=== PATIENT | male | born 1955 | race Caucasian/White ===

== ENCOUNTER 2019-05-03 12:54 | Inpatient (IN) ==
--- NOTE | 2019-05-03 13:04 | Emergency Department Note ---
Disposition Clinical Impression: CVA (cerebral vascular accident) Qualifiers: CVA mechanism: unspecified Qualified Code(s): I63.9 - Cerebral infarction, unspecified Disposition: Admitted As Inpatient Condition: Fair Forms: ED Satisfaction Letter Time of Disposition: 14:23 General Adult HPI - General Stated complaint: Poss stroke Time Seen by Provider: 05/03/19 12:59 - Related Data Allergies Allergy/AdvReac Type Severity Reaction Status Date / Time methadone Allergy Difficulty Verified 05/03/19 13:56 Breathing venlafaxine Allergy Difficulty Verified 05/03/19 13:56 Breathing Course Vital Signs Temperature 98.1 F 05/03/19 13:01 Pulse Rate 82 05/03/19 13:01 Respiratory Rate 18 05/03/19 13:01 Blood Pressure 181/103 05/03/19 13:01 O2 Sat by Pulse Oximetry 99 05/03/19 13:01 Temperature 98.1 F 05/03/19 13:01 Pulse Rate 84 05/03/19 13:19 Respiratory Rate 17 05/03/19 13:19 Blood Pressure 153/114 05/03/19 13:19 O2 Sat by Pulse Oximetry 99 05/03/19 13:01 Oxygen Delivery Oxygen Delivery Room Air Medical Decision Making - Lab Data Result diagrams: 05/03/19 13:06 05/03/19 13:06 Lab Results 05/03/19 05/03/19 05/03/19 Range/Units 13:06 13:06 13:06 WBC 10.8 (4.3-11.1) K/mcL RBC 5.07 (4.19-5.50) M/mcL Hgb 14.8 (12.9-16.9) g/dL Hct 43.6 (37.5-50.1) % MCV 86.0 (83.0-100.0) fL MCH 29.2 (28.0-33.3) pg MCHC 33.9 (31.6-35.5) g/dL RDW 13.7 (11.5-14.5) % Plt Count 354 (140-400) K/mcL MPV 10.1 (9.4-12.4) fL PT 11.5 (9.4-12.1) Seconds INR 1.0 APTT 37.2 H (26.0-36.0) Seconds Sodium 141 (136-145) mEq/L Potassium 3.8 (3.5-5.1) mEq/L Chloride 108 H (98-107) mEq/L Carbon Dioxide 23 (23-29) mEq/L BUN 12 (8-23) mg/dL Creatinine 0.92 (0.70-1.30) mg/dL Est GFR ( Amer) > 60 (> 60) Est GFR (Non-Af Amer) > 60 (> 60) BUN/Creatinine Ratio 13 (6-26) Glucose 95 (70-105) mg/dL Calculated Osmolality 292 (280-300) Calcium 9.2 (8.6-10.3) mg/dL Troponin I < 0.03 (< 0.04) ng/mL Critical Care Time Critical Care Time: Yes Total Critical Care Time: 30 Attestation: The high probability of a clinically significant, sudden or life threatening deterioration of the [] system(s) required my full and direct attention, intervention and personal management. The aggregate critical care time was [] minutes. This time is in addition to time spent performing reported procedures but includes the following: [] Data Review and interpretation [] Patient assessment and monitoring of vital signs [] Documentation [] Medication orders and management Attestation Statement - Attestation Attestation: I reviewed the residents documentation and agree with the residents assessment and plan of care. I have personally had face to face time with the patient. (Brief History, Brief Exam, and MDM) I personally supervised and was present for the [place]/critical portions of the following procedures completed by the resident: (add procedures performed here). [id number] time provided Patient arrives as a transfer from the [facility] with symptoms that started 3 hours ago. He stated his tongue felt full and he has left-sided symptoms. Objectively he has a left-sided pronator drift. Stroke alert activated. I attest to supervising the resident physician's interpretation of the ECG
[2019-05-03 13:17] LABS: Hematocrit 43.6 % (37.5-50.1); Hemoglobin 14.8 g/dL (12.9-16.9); Mean Corpuscular HGB Conc 33.9 g/dL (31.6-35.5); Mean Corpuscular Hemoglobin 29.2 pg (28.0-33.3); Mean Platelet Volume 10.1 fL (9.4-12.4); Platelet Count 354 K/mcL (140-400); Red Blood Count 5.07 M/mcL (4.19-5.50); Red Cell Distribution Width 13.7 % (11.5-14.5); White Blood Count 10.8 K/mcL (4.3-11.1)
--- NOTE | 2019-05-03 13:17 | Emergency Department Note ---
Disposition Clinical Impression: CVA (cerebral vascular accident) Qualifiers: CVA mechanism: unspecified Qualified Code(s): I63.9 - Cerebral infarction, unspecified Disposition: Admitted As Inpatient Condition: Fair Forms: ED Satisfaction Letter Time of Disposition: 13:43 General Adult HPI - General Chief complaint: ED Neuro Symptoms/Deficit Stated complaint: Poss stroke Time Seen by Provider: 05/03/19 12:59 Source: patient, EMS Mode of arrival: EMS Limitations: no limitations Nursing Notes Reviewed: Yes Vital Signs Reviewed: Yes - History of Present Illness HPI Narrative: Patient is 63-year-old male that presents emergency department with concerns for possible strokelike symptoms. Patient states that approximately 9 AM he was playing pool when he started having weakness to the left upper and lower extremity. Patient also states that he felt like his tongue was swollen and full and is having a little bit more difficulty with his speech sounding slurred. Patient states that he feels like his symptoms are improving. Patient states that his tongue no longer feels like he has swollen. Patient states that his left upper extremity is the only one that seems to be bothering him at this time. Patient states that he has never had a prior history of stroke. Patient has being on any blood thinners. Patient has any recent surgeries or trauma. Patient denies any blood in his stool or in his sputum or vomit. Pain Scale: 0 - Related Data Allergies Allergy/AdvReac Type Severity Reaction Status Date / Time methadone Allergy Difficulty Verified 05/03/19 13:56 Breathing venlafaxine Allergy Difficulty Verified 05/03/19 13:56 Breathing All systems ED: reviewed and negative except as stated. Constitutional: Denies: fever Cardiovascular: Denies: chest pain Respiratory: Denies: dyspnea Gastrointestinal: Denies: abdominal pain Neurological: Reports: weakness (Left upper and lower extremity.), other (Difficulty with slurred speech.) Past Medical History - Past Medical History Medical history: Reports: no medical history Psychiatric history: Reports: no psych history - Social History Smoking Status: Current every day smoker Smokeless Tobacco Status: No Alcohol use: Reports: none Drug use: Reports: none Physical Exam - General Limitations: no limitations General appearance: alert, in no apparent distress - Head Head exam: atraumatic, normocephalic - Eye Eye exam: Present: normal appearance, EOMI - Neck Neck exam: Present: normal inspection, full ROM, trachea midline - Respiratory Respiratory exam: Present: normal lung sounds bilaterally. Absent: respiratory distress, wheezes - Cardiovascular Cardiovascular exam: Present: regular rate, normal rhythm, normal heart sounds, +S1, +S2 - Abdominal Exam Abdominal exam: Present: soft, Non-Tender, normal bowel sounds - Neurological Exam Neurological exam: Present: alert, oriented X3 - Expanded Neurological Exam Speech: Present: fluid speech Cranial nerves: EOM function (II, III, IV, ): Normal, facial sensation (V): Normal, facial palsy (VII): Normal, gag reflex (IX): Normal, spinal accessory function (XI): Normal, tongue deviation (XII): Normal Cerebellar function: finger to nose: Normal, heel to solis: Normal Motor strength - LUE: 5/5 Motor strength - RUE: 5/5 Motor strength - LLE: 5/5 Motor strength - RLE: 5/5 Upper motor neuron exam: pronator drift: Present on left Sensory exam upper extremity: light touch: Normal Sensory exam lower extremity: light touch: Normal Coma Scale Eye Opening: Spontaneous Coma Scale Motor Response: Obeys Commands Coma Scale Verbal Response: Oriented Coma Scale Total: 15 - Psychiatric Psychiatric exam: Present: normal affect, normal mood - Skin Skin exam: Present: warm, dry, intact Course Vital Signs Temperature 98.1 F 05/03/19 13:01 Pulse Rate 82 05/03/19 13:01 Respiratory Rate 18 05/03/19 13:01 Blood Pressure 181/103 05/03/19 13:01 O2 Sat by Pulse Oximetry 99 05/03/19 13:01 Temperature 98.1 F 05/03/19 13:01 Pulse Rate 84 05/03/19 13:19 Respiratory Rate 17 05/03/19 13:19 Blood Pressure 153/114 05/03/19 13:19 O2 Sat by Pulse Oximetry 99 05/03/19 13:01 Oxygen Delivery Oxygen Delivery Room Air Medical Decision Making - MDM Narrative Medical decision making narrative: Due the patient's into the emergency department with reports of neurologic symptoms concerning for possible stroke a stroke alert was called. Patient has an NIH of 2. Patient was evaluated by the stroke neurologist at [facility]. Stated that he was not a TPA candidate. Recommend that he be admitted for MRI and further neurologic workup. Patient and family member at bedside are in agreement with this plan. Patient's EKG does not show any signs of STEMI. Head CT was negative. Laboratory testing is relatively unremarkable. Patient's symptoms have been slowly improving. Patient will be given an aspirin. Called spoke the admitting hospitalist Dr. Escobar and he has accepted the patient to [facility] service. - Medical Records Medical records reviewed: Yes I reviewed the patient's medical records. - Lab Data Lab results reviewed: Yes I reviewed the patient's lab results. Result diagrams: 05/03/19 13:06 05/03/19 13:06 Lab Results 05/03/19 05/03/19 05/03/19 Range/Units 13:06 13:06 13:06 WBC 10.8 (4.3-11.1) K/mcL RBC 5.07 (4.19-5.50) M/mcL Hgb 14.8 (12.9-16.9) g/dL Hct 43.6 (37.5-50.1) % MCV 86.0 (83.0-100.0) fL MCH 29.2 (28.0-33.3) pg MCHC 33.9 (31.6-35.5) g/dL RDW 13.7 (11.5-14.5) % Plt Count 354 (140-400) K/mcL MPV 10.1 (9.4-12.4) fL PT 11.5 (9.4-12.1) Seconds INR 1.0 APTT 37.2 H (26.0-36.0) Seconds Sodium 141 (136-145) mEq/L Potassium 3.8 (3.5-5.1) mEq/L Chloride 108 H (98-107) mEq/L Carbon Dioxide 23 (23-29) mEq/L BUN 12 (8-23) mg/dL Creatinine 0.92 (0.70-1.30) mg/dL Est GFR ( Amer) > 60 (> 60) Est GFR (Non-Af Amer) > 60 (> 60) BUN/Creatinine Ratio 13 (6-26) Glucose 95 (70-105) mg/dL Calculated Osmolality 292 (280-300) Calcium 9.2 (8.6-10.3) mg/dL Troponin I < 0.03 (< 0.04) ng/mL - Radiology Data Radiology results reviewed: Yes I reviewed the patient's radiology results. Head CT 05/03/19 13:02 IMPRESSION: 1. No acute intracranial abnormality. Critical results were called by Dr. Jonathan Sumner MD to Dr. Dequan BAEZ on 05/03/2019 at 13:21. D/ / Jonathan Sumner MD / Jonathan Sumner MD Interpreting Provider: Jonathan Sumner MD - EKG Data EKG #1 EKG attestation: Yes I reviewed and interpreted this EKG. EKG results narrative: EKG shows a sinus rhythm at a rate of 85 beats per minute, [place] interval 164, QRS duration is 86, QTc of 423. There is no evidence of STEMI and EKG. NIH Stroke Scale - Level of Consciousness LOC: Alert - LOC Questions LOC Questions: Answers both correctly - LOC Commands LOC Commands: Performs both correctly - Best Gaze Best Gaze: Normal - Visual Visual: No visual loss - Facial Palsy Facial Palsy: Normal - Motor Arms Motor Arm-Left: Drift, does NOT hit bed Motor Arm-Right: No drift for 10 seconds - Motor Legs Motor Leg-Left: Drift, does NOT hit bed Motor Leg-Right: No drift for 5 seconds - Limb Ataxia Limb Ataxia: Normal, No Ataxia - Sensory Sensory: Normal - Best Language Best Language: No aphasia - Dysarthria Dysarthria: Normal - Extinction and Inattention Extinction and Inattention: Normal - NIHSS Total Score NIHSS Total Score: 2
[2019-05-03 13:23] LABS: Prothrombin Time 11.5 Seconds (9.4-12.1)
[2019-05-03 13:25] LABS: Activated Partial Thrombo Time 37.2 Seconds (26.0-36.0)
[2019-05-03 13:33] LABS: BUN/Creatinine Ratio 13 (6-26); Blood Urea Nitrogen 12 mg/dL (8-23); Calcium 9.2 mg/dL (8.6-10.3); Carbon Dioxide 23 mEq/L (23-29); Chloride 108 mEq/L (98-107); Glucose 95 mg/dL (70-105); Osmolality,Calculated 292 (280-300); Potassium 3.8 mEq/L (3.5-5.1); Sodium 141 mEq/L (136-145); Troponin I < 0.03 ng/mL (< 0.04); eGFR For African Americans > 60 (> 60); eGFR For Non-African Americans > 60 (> 60)
[2019-05-03] MEDS ORDERED: Aspirin 81 MG TAB.CHEW PO STA (13:43)
[2019-05-03] MEDS ORDERED: Naloxone 0.4 MG/ML INJ IVP PRN (15:09)
--- NOTE | 2019-05-03 15:16 | Internal Med History&Physical ---
Date of Encounter: 05/03/19 Time of Encounter: 15:14 Internal Medicine - H&P: HPI Chief complaint: Left-sided weakness Admitted From: Home History of present illness: Mr. Montero is a 63 year old male with a past medical history of hypertension, c hronic low back pain and seizure disorder Past Med Surg Social Fam HX - Past Medical History Source: patient Medical history: hypertension Psychiatric history: no psych history - Social History Smoking Status: Current every day smoker Smokeless Tobacco Status: No Alcohol use: none Drug use: none - Family History Brother Adopted: No Race: Family Member Ethnicity: Non- Living Status: Cause of : Myocardial infarction Hx Family Cardiac Disorders: Yes ([place]) Internal Medicine - H&P: Meds Amlodipine Besylate 10 mg PO DAILY 05/03/19 [History] Cyclobenzaprine [Flexeril] 10 mg PO BID PRN 05/03/19 [History] Diclofenac Sodium [Voltaren] 50 mg PO TID 05/03/19 [History] Fluticasone Propionate Nasal [Flonase] 100 mcg NS DAILY 05/03/19 [History] OLANZapine [Zyprexa] 5 mg PO DAILY 05/03/19 [History] Omeprazole [PriLOSEC] 20 mg PO DAILY 05/03/19 [History] Ondansetron [Zofran ODT] 8 mg SL BID PRN 05/03/19 [History] Trazodone HCl 100 mg PO HS 05/03/19 [History] diazePAM [Valium] 5 mg PO BID 05/03/19 [History] hydroCHLOROthiazide [Hydrochlorothiazide] 12.5 mg PO DAILY 05/03/19 [History] Allergy/AdvReac Type Severity Reaction Status Date / Time methadone Allergy Difficulty Verified 05/03/19 13:56 Breathing venlafaxine Allergy Difficulty Verified 05/03/19 13:56 Breathing All Systems PM: A 10-system review of systems was performed and is negative for pertinent findings except as documented above in the HPI. Review of systems: GENERAL: Not in distress. Alert and Oriented HEENT: EOMI, PERRLA MOUTH: Moist oral mucosa NECK:No JVD, No lymph nodes. CHEST AND LUNGS: Normal breath sounds, no wheezes or crackles HEART: S1 and S2 normal, no murmurs ABDOMEN: Soft, nontender, no organomegaly SKIN: Normal color, no rahses, no lesions EXTREMITIES: No deformity, no edema, no tenderness, no joint swelling or clubbing NEUROLOGICAL: Normal cognition, normal motor and sensory exam. - Constitutional Vitals: Temp Pulse Resp BP Pulse Ox 36.7 C 84 17 153/114 99 05/03/19 13:01 05/03/19 13:19 05/03/19 13:19 05/03/19 13:19 05/03/19 13:01 Exam: Patient is a 63-year-old male with past medical history of hypertension, seizure disorder (last seizure many years ago) and chronic low back pain who presented with sudden onset left-sided weakness which started today. Patient states that he was in a friend's house playing pool when he suddenly noticed that he was swaying towards his left side when walking and could not control the cue stick because he noticed some weakness and had lost sensation in his left upper and lower extremities. This occurred about 3 hours prior to presenting at the hospital. His friends got alarmed and called 911 and an embolus "to the hospital. He denied facial droop, headache, vision loss and palpitations. Patient also reports that his right upper extremity was flailing uncontrollably for short period when all symptoms started. Internal Med - H&P Results - Labs CBC & Chem 7: 05/03/19 13:06 05/03/19 13:06 Labs: Short CBC 05/03/19 Range/Units 13:06 WBC 10.8 (4.3-11.1) K/mcL Hgb 14.8 (12.9-16.9) g/dL Hct 43.6 (37.5-50.1) % Plt Count 354 (140-400) K/mcL BMP 05/03/19 13:06 Sodium 141 Potassium 3.8 Chloride 108 H Carbon Dioxide 23 BUN 12 Creatinine 0.92 Glucose 95 Calcium 9.2 Cardiac Enzymes 05/03/19 Range/Units 13:06 Troponin I < 0.03 (< 0.04) ng/mL - Impressions ITS Impressions Head CT 05/03/19 13:02 IMPRESSION: 1. No acute intracranial abnormality. Critical results were called by Dr. Jonathan Sumner MD to Dr. Dequan BAEZ on 05/03/2019 at 13:21. D/ / Jonathan Sumner MD / Jonathan Sumner MD Interpreting Provider: Jonathan Sumner MD - Assessment and Plan (1) CVA (cerebral vascular accident) Current Visit: Yes Status: Suspected Assessment and plan: Patient presented with left-sided weakness about 3 hours duration prior to admission. NIH stroke scale of 2 Stroke neurologist at [facility] was contacted in the ER and stated that patient was not a TPA candidate. I reviewed his CT scan which does not show any acute intracranial process. We will order MRI and MRA for further evaluation Blood pressure 150/80 on encounter. Received 324 mg off aspirin in the ED We will put on aspirin and statin. Qualifiers: CVA mechanism: unspecified Qualified Code(s): I63.9 - Cerebral infarction, unspecified (2) Hypertension Current Visit: Yes Status: Acute Assessment and plan: Current blood pressure 150/80 on account We will resume home meds. Qualifiers: Hypertension type: essential hypertension Qualified Code(s): I10 - Essential (primary) hypertension (3) Chronic low back pain Current Visit: Yes Status: Acute Assessment and plan: Resume home also relaxants and payments. Qualifiers: Back pain laterality: bilateral Sciatica presence: without sciatica Qualified Code(s): M54.5 - Low back pain; G89.29 - Other chronic pain (4) Anxiety Current Visit: Yes Status: Chronic Assessment and plan: Resume home meds (5) Depression Current Visit: Yes Status: Chronic Assessment and plan: Resume home meds Qualifiers: Depression Type: unspecified Qualified Code(s): F32.9 - Major depressive disorder, single episode, unspecified (6) Obesity (BMI 30.0-34.9) Current Visit: Yes Status: Acute Assessment and plan: Patient counseled on weight loss modalities available. (7) DVT prophylaxis Current Visit: Yes Status: Acute Assessment and plan: Subcutaneous heparin - Time Spent With Patient Total time spent is greater than 50% in coordination of care (as documented) at patient's floor/unit and/or counseling patient:
[2019-05-03] MEDS: diazePAM 5 MG TABLET PO SCH (20:14)
[2019-05-03] MEDS: traZODone 50 MG TABLET PO SCH (20:14)
[2019-05-04] MEDS: Acetaminophen 325 MG TABLET PO PRN ×2 (00:47→14:01)
[2019-05-04 05:08] LABS: Basophils # 0.1 K/mcL (0.0-0.2); Basophils % 1.2 %; Eosinophils # 0.7 K/mcL (0.0-0.6); Eosinophils % 7.8 %; Hematocrit 40.7 % (37.5-50.1); Hemoglobin 13.7 g/dL (12.9-16.9); Immature Granulocytes % 0.3 % (0-4); Lymphocytes # 3.2 K/mcL (0.6-4.6); Lymphocytes % 34.9 %; Mean Corpuscular HGB Conc 33.7 g/dL (31.6-35.5); Mean Corpuscular Hemoglobin 28.9 pg (28.0-33.3); Mean Corpuscular Volume 85.9 fL (83.0-100.0); Mean Platelet Volume 10.3 fL (9.4-12.4); Monocytes # 0.8 K/mcL (0.0-1.3); Monocytes % 9.1 %; Neutrophils # 4.3 K/mcL (1.6-8.9); Platelet Count 309 K/mcL (140-400); Red Blood Count 4.74 M/mcL (4.19-5.50); Red Cell Distribution Width 13.7 % (11.5-14.5); Segmented Neutrophils % 46.7 %; White Blood Count 9.1 K/mcL (4.3-11.1)
[2019-05-04 05:17] LABS: BUN/Creatinine Ratio 15 (6-26); Blood Urea Nitrogen 16 mg/dL (8-23); Carbon Dioxide 25 mEq/L (23-29); Chloride 106 mEq/L (98-107); Glucose 113 mg/dL (70-105); Osmolality,Calculated 288 (280-300); Potassium 3.4 mEq/L (3.5-5.1); Sodium 138 mEq/L (136-145); eGFR For African Americans > 60 (> 60); eGFR For Non-African Americans > 60 (> 60)
[2019-05-04] MEDS: Fluticasone Propionate Nasal 50 MCG/SPRAY BOTTLE NS SCH (07:38)
[2019-05-04] MEDS: Aspirin 81 MG TAB.CHEW PO SCH (07:39)
[2019-05-04] MEDS: hydroCHLOROthiazide 25 MG TABLET PO SCH (07:39)
[2019-05-04] MEDS: amLODIPine 5 MG TABLET PO SCH (07:39)
[2019-05-04] MEDS: diazePAM 5 MG TABLET PO SCH ×2 (07:40→22:47)
[2019-05-04] MEDS: OLANZapine 5 MG TAB.RAPDIS PO SCH (07:46)
--- NOTE | 2019-05-04 09:46 | Electrocardiograph Report ---
[place] [id number] Test Date: 2019-05-03 Pat Name: Mati Montero Department: EXAM12 Room: 2A Gender: M Biomathematician: : 1955 Requested By: Hardy Duong Order Number: [id number] Reading MD: Rich Berman Measurements Intervals [place] Rate: 85 P: 43 WV: 164 QRS: 19 QRSD: 86 T: 58 QT: 355 QTc: 423 Interpretive Statements Sinus rhythm Electronically Signed On 05-04-2019 9:44:32 EDT by Rich Berman
--- NOTE | 2019-05-04 10:41 | Internal Med Progress Note ---
Hospitalist Progress Note - Encounter Date of Encounter: 05/04/19 Time of Encounter: 08:30 - Subjective Interval History: Patient presented with left-sided weakness currently undergoing a stroke workup. He admits that he has noticed improvement in this weakness is able to move his left lower extremity and upper extremity better compared to yesterday. He denies headaches, palpitations, blurred patient, drooling, chest pain, shortness of breath and lightheadedness. - Exam Vitals: Temp Pulse Resp BP Pulse Ox 36.3 C L 59 16 150/89 96 05/04/19 09:01 05/04/19 09:01 05/04/19 09:01 05/04/19 09:01 05/04/19 09:01 Exam: GENERAL: Not in distress. Alert and Oriented HEENT: EOMI, PERRLA MOUTH: Moist oral mucosa. NECK:No JVD, No lymph nodes. CHEST AND LUNGS: Normal breath sounds, no wheezes or crackles HEART: S1 and S2 normal, no murmurs ABDOMEN: Soft, nontender, no organomegaly SKIN: Normal color, no rashes, no lesions EXTREMITIES: No deformity, no edema, no tenderness, no joint swelling or clubbing NEUROLOGICAL: Power of 5/5 in all extremitites. Patient has reduced sensation to light touch in entire left upper extremity but has normal touch and proproceptio n in left lower extremity. - Assessment and Plan (1) CVA (cerebral vascular accident) Current Visit: Yes Status: Suspected Assessment and Plan: Patient presented with left-sided weakness about 3 hours duration prior to admission. Neuro exam this morning reveals an improvement in the power in the left upper and lower extremities from 4/5 to 5/5. Patient is awaiting MRI/MRA of brain and neck, carotid doppler as well as echocardiogram. Continue to monitor. (2) Hypertension Current Visit: Yes Status: Acute Assessment and Plan: Current blood pressure 150/89 this morning. Continue oral meds (3) Chronic low back pain Current Visit: Yes Status: Acute Assessment and Plan: On home muscle relaxants and PRN pain meds. (4) Anxiety Current Visit: Yes Status: Chronic Assessment and Plan: On home meds (5) Depression Current Visit: Yes Status: Chronic Assessment and Plan: On home meds (6) Obesity (BMI 30.0-34.9) Current Visit: Yes Status: Acute Assessment and Plan: Patient counseled on weight loss modalities available. (7) DVT prophylaxis Current Visit: Yes Status: Acute Assessment and Plan: Subcutaneous heparin - Time Spent with Patient Total time spent is greater than 50% in coordination of care (as documented) at patient's floor/unit and/or counseling patient: Internal Medicine: Result - Labs CBC & Chem 7: 05/04/19 04:16 05/04/19 04:16 Labs: Short CBC 05/03/19 05/04/19 Range/Units 13:06 04:16 WBC 10.8 9.1 (4.3-11.1) K/mcL Hgb 14.8 13.7 (12.9-16.9) g/dL Hct 43.6 40.7 (37.5-50.1) % Plt Count 354 309 (140-400) K/mcL Neutrophils # 4.3 (1.6-8.9) K/mcL BMP 05/03/19 05/04/19 13:06 04:16 Sodium 141 138 Potassium 3.8 3.4 L Chloride 108 H 106 Carbon Dioxide 23 25 BUN 12 16 Creatinine 0.92 1.04 Glucose 95 113 H Calcium 9.2 9.0 Cardiac Enzymes 05/03/19 Range/Units 13:06 Troponin I < 0.03 (< 0.04) ng/mL - ABG Interpretation ABG results: PT/INR, D-dimer PT 11.5 Seconds (9.4-12.1) 05/03/19 13:06 - Impressions Impressions Head CT 05/03/19 13:02 IMPRESSION: 1. No acute intracranial abnormality. Critical results were called by Dr. Jonathan Sumner MD to Dr. Dequan BAEZ on 05/03/2019 at 13:21. D/ / Jonathan Sumner MD / Jonathan Sumner MD Interpreting Provider: Jonathan Sumner MD Consult Discharge Plan - Plan [facility] Care Provider[facility] - (1) CVA (cerebral vascular accident) Qualifiers: CVA mechanism: unspecified Qualified Code(s): I63.9 - Cerebral infarction, unspecified (2) Hypertension Qualifiers: Hypertension type: essential hypertension Qualified Code(s): I10 - Essential (primary) hypertension (3) Chronic low back pain Qualifiers: Back pain laterality: bilateral Sciatica presence: without sciatica Q ualified Code(s): M54.5 - Low back pain; G89.29 - Other chronic pain (5) Depression Qualifiers: Depression Type: unspecified Qualified Code(s): F32.9 - Major depressive disorder, single episode, unspecified
[2019-05-04] MEDS: *HR* Heparin 5,000 UNIT/ML VIAL SQ SCH ×2 (14:53→22:48)
[2019-05-04 16:39] LABS: Chol/HDL Ratio 4.3 (0-4.9); Cholesterol 160 mg/dL (< 200); HDL Cholesterol 37 mg/dL (40-59); LDL Cholesterol,Calculated 109 mg/dL (0-99); Triglycerides 69 mg/dL (< 150)
[2019-05-04] MEDS ORDERED: *HR* OxyCODONE/APAP 5/325 TABLET PO PRN (17:29)
[2019-05-04 17:57] LABS: Chol/HDL Ratio 4.2 (0-4.9)
[2019-05-04] MEDS: traZODone 50 MG TABLET PO SCH (22:47)
[2019-05-05 04:22] LABS: Basophils # 0.1 K/mcL (0.0-0.2); Basophils % 1.1 %; Eosinophils # 0.7 K/mcL (0.0-0.6); Eosinophils % 8.2 %; Hematocrit 42.2 % (37.5-50.1); Hemoglobin 14.3 g/dL (12.9-16.9); Immature Granulocytes % 0.2 % (0-4); Lymphocytes # 3.7 K/mcL (0.6-4.6); Lymphocytes % 41.9 %; Mean Corpuscular HGB Conc 33.9 g/dL (31.6-35.5); Mean Corpuscular Hemoglobin 28.7 pg (28.0-33.3); Mean Corpuscular Volume 84.6 fL (83.0-100.0); Mean Platelet Volume 10.2 fL (9.4-12.4); Monocytes # 0.7 K/mcL (0.0-1.3); Monocytes % 7.4 %; Neutrophils # 3.6 K/mcL (1.6-8.9); Platelet Count 316 K/mcL (140-400); Red Blood Count 4.99 M/mcL (4.19-5.50); Red Cell Distribution Width 13.6 % (11.5-14.5); Segmented Neutrophils % 41.2 %; White Blood Count 8.8 K/mcL (4.3-11.1)
[2019-05-05 04:48] LABS: BUN/Creatinine Ratio 17 (6-26); Blood Urea Nitrogen 17 mg/dL (8-23); Calcium 8.9 mg/dL (8.6-10.3); Carbon Dioxide 26 mEq/L (23-29); Chloride 103 mEq/L (98-107); Glucose 108 mg/dL (70-105); Osmolality,Calculated 288 (280-300); Potassium 3.2 mEq/L (3.5-5.1); Sodium 138 mEq/L (136-145); eGFR For African Americans > 60 (> 60); eGFR For Non-African Americans > 60 (> 60)
[2019-05-05] MEDS: amLODIPine 5 MG TABLET PO SCH (07:13)
[2019-05-05] MEDS: OLANZapine 5 MG TAB.RAPDIS PO SCH (07:13)
[2019-05-05] MEDS: *HR* Heparin 5,000 UNIT/ML VIAL SQ SCH ×2 (07:13→13:11)
[2019-05-05] MEDS: hydroCHLOROthiazide 25 MG TABLET PO SCH (07:13)
[2019-05-05] MEDS: diazePAM 5 MG TABLET PO SCH ×2 (07:13→19:52)
[2019-05-05] MEDS: Aspirin 81 MG TAB.CHEW PO SCH (07:14)
[2019-05-05] MEDS: Fluticasone Propionate Nasal 50 MCG/SPRAY BOTTLE NS SCH (07:14)
--- NOTE | 2019-05-05 08:33 | Cardiology Consult Note ---
<Paola Orozco - Last Filed: 05/05/19 11:39> Date of Encounter: 05/05/19 Time of Encounter: 10:17 Assessment and Plan (1) PFO (patent foramen ovale) Current Visit: Yes Status: Acute -Potassium level today was 3.2. Mg level ordered. Potassium chloride 40 mEq BID PO ordered. -Patient is on HCTZ at home. Recommend 20 mEq potassium per day for home medication -Discussed PFO with patient. -Recommend repair of PFO at future date -Have ordered DAMI to clarify size of PFO -Have ordered event recorder -Plan followup outpatient in one month. (2) CVA (cerebral vascular accident) Current Visit: Yes Status: Acute Neurology is following. -Patient appears to have recovered strength and sensation since yesterday. Discussion w patient/family: The assessment and plan as outlined above was discussed with the patient and/or family members who expressed understanding and agreement. All questions were answered. Thank you for involving us in the care of your patient. Please call with any questions. History of Present Illness Consult date: 05/04/19 Requesting physician: Alexandria Maloney Consult reason: CVA with PFO on echo Chief complaint: acute CVA History of present illness: Mr. Montero is a 63 year old male presenting for acute CVA in the context of PFO found on echocardiogram. Past medical history includes hypertension and seizures. Home medications include HCTZ and amlodipine. He is not on anticoagula tion. In hospital, he is on ASA and heparin. Around 9 AM on 05/03, he developed left-sided weakness and numbness which affected his upper and lower extremities. He went home around 11:30 and went to the [facility]. From there, he was transferred to [facility]. Echocardiogram on 05/04 showed saline contrast bubbles in left heart at approximately 3 cardiac cycles suggestive of PFO, LVEF 60%, normal RV structure and function, no significant valvular dysfunction, no pulmonary HTN. Carotid duplex showed essentially normal bilateral carotid systems. Today, he feels as though feeling has returned in his left arm and leg. He reports normal balance and strength and is no longer dropping objects gripped with left hand. Past Med Surg Social Fam HX - Past Medical History Medical history: hypertension Psychiatric history: no psych history - Social History Smoking Status: Light tobacco smoker Smokeless Tobacco Status: No Alcohol use: none Drug use: none - Family History Brother Adopted: No Race: Family Member Ethnicity: Non- Living Status: Cause of : Myocardial infarction Hx Family Cardiac Disorders: Yes ([place]) Medications and Allergies Amlodipine Besylate 10 mg PO DAILY 05/03/19 [History] Cyclobenzaprine [Flexeril] 10 mg PO BID PRN 05/03/19 [History] Diclofenac Sodium [Voltaren] 50 mg PO TID 05/03/19 [History] Fluticasone Propionate Nasal [Flonase] 100 mcg NS DAILY 05/03/19 [History] OLANZapine [Zyprexa] 5 mg PO DAILY 05/03/19 [History] Omeprazole [PriLOSEC] 20 mg PO DAILY 05/03/19 [History] Ondansetron [Zofran ODT] 8 mg SL BID PRN 05/03/19 [History] Trazodone HCl 100 mg PO HS 05/03/19 [History] diazePAM [Valium] 5 mg PO BID 05/03/19 [History] hydroCHLOROthiazide [Hydrochlorothiazide] 12.5 mg PO DAILY 05/03/19 [History] Allergy/AdvReac Type Severity Reaction Status Date / Time methadone Allergy Difficulty Verified 05/03/19 13:56 Breathing venlafaxine Allergy Difficulty Verified 05/03/19 13:56 Breathing All Systems Review: The remainder of the systems were reviewed and are negative - Constitutional Constitutional: no fatigue, no headache(s), no weakness - EENT Eyes: no blurred vision - Cardiovascular Cardiovascular: no chest pain at rest, no chest pain with exertion, no dyspnea at rest, no dyspnea on exertion, no leg edema, no rapid heart rate - Respiratory Respiratory: no dyspnea - Gastrointestinal Gastrointestinal: no coffee ground emesis, no constipation, no diarrhea, no hematemesis, no hematochezia, no nausea - Genitourinary Genitourinary: no dysuria, no hematuria - Musculoskeletal Musculoskeletal: back pain - Neurological Neurological: no abnormal speech, no dizziness, no focal weakness, no loss of vision, no numbness - Psychiatric Psychiatric: no anxiety, no depression - Hematological/Lymphatic Hematologic/Lymphatic: no easy bleeding, no easy bruising Physical Examination Vital Signs, Last 4 Hours Temp Pulse Resp BP Pulse Ox 05/05/19 06:42 97.9 F 69 14 116/79 96 05/05/19 04:30 97.6 F 63 13 130/86 96 Other: GENERAL: awake, conversational, pleasant EYES: clear sclerae, anicteric, pupils equal and reactive to light HENT: normocephalic, atraumatic, moist mucosa NECK: no carotid bruits heard, normal carotid pulses CV: regular rate and rhythm, no murmurs RESPIRATORY: clear to auscultation bilaterally, no wheezes, rhonchi, or rales GI: normal bowel sounds, soft, nontender, nondistended. No aortic bruit EXTREMITIES: nonedematous, acyanotic, peripheral pulses 2+/4 bilaterally NEURO: muscle strength 5/5 in upper and lower extremities bilaterally. No facial droop. No aphasia. Results 05/05/19 03:49 05/05/19 03:49 Lab Results 05/04/19 05/05/19 05/05/19 04:16 03:49 03:49 WBC 8.8 Hgb 14.3 Hct 42.2 Plt Count 316 Sodium 138 138 Potassium 3.4 L 3.2 L Chloride 106 103 Carbon Dioxide 25 26 BUN 16 17 Creatinine 1.04 0.98 Glucose 113 H 108 H Calcium 9.0 8.9 - Imaging and Cardiology Echo: report reviewed Consult Discharge Plan - Plan [facility]errals: [facility]Primary Care Provider[facility] - <Onofre Amezcua P - Last Filed: 05/05/19 12:03> Date of Encounter: 05/05/19 - Attending Attestation Patient seen and examined independently. Recent stroke with resolving left- sided weakness. At this stage the likely etiology is his patent foramen ovale. Education regarding PFO and its relationship to stroke and the therapeutic options available was performed. The patient has significant transportation issues so at this time our plan will be to have his DAMI performed while in-house and have his event recorder placed prior to discharge. I could not see him in the office in 2-4 weeks. Plan care discussed in detail with housestaff and hospitalist service and zachariah aiken Assessment and Plan Discussion w patient/family: The assessment and plan as outlined above was discussed with the patient and/or family members who expressed understanding and agreement. All questions were answered. Thank you for involving us in the care of your patient. Please call with any questions. History of Present Illness History of present illness: Mr. Montero is a 63 year old male All Systems Review: The remainder of the systems were reviewed and are negative Physical Examination Vital Signs, Last 4 Hours Temp Pulse Resp BP Pulse Ox 05/05/19 10:37 98.0 F 82 14 127/85 94 Results 05/05/19 03:49 05/05/19 03:49 Lab Results 05/04/19 05/05/19 05/05/19 04:16 03:49 03:49 WBC 8.8 Hgb 14.3 Hct 42.2 Plt Count 316 Sodium 138 138 Potassium 3.4 L 3.2 L Chloride 106 103 Carbon Dioxide 25 26 BUN 16 17 Creatinine 1.04 0.98 Glucose 113 H 108 H Calcium 9.0 8.9 Magnesium 05/05/19 10:19 WBC Hgb Hct Plt Count Sodium Potassium Chloride Carbon Dioxide BUN Creatinine Glucose Calcium Magnesium 2.0
[2019-05-05] MEDS ORDERED: Acetaminophen 325 MG TABLET PO PRN (09:05)
[2019-05-05] MEDS ORDERED: *HR* OxyCODONE/APAP 5/325 TABLET PO PRN (09:06)
--- NOTE | 2019-05-05 09:44 | Neurology - Consult Note ---
<Tom Mcelroy M - Last Filed: 05/05/19 13:35> Date of Encounter: 05/05/19 Time of Encounter: 09:15 Assessment and Plan (1) CVA (cerebral vascular accident) Current Visit: Yes Status: Acute MRI showing restricted diffusion within right MCA consistent with acute infarct. No focal neurological deficits to examination. Patients paresthesia appears to have resolved. Recommend evaluation by Physical Therapy/Occupational Therapy. ECHO showing PFO defer to cardiology regarding treatment recommendation for PFO. Further recommendations per Dr. Mckeon, attending neurologists, addendum. History of Present Illness Chief complaint: "Weakness" HPI: Mr. Montero is a 63 year old male with past medical history of hypertension, seizure disorder in remote history, and chronic back pain who presented with sudden onset left-side parasthesia to the [facility] on 05/03. He reports that he was at a [employer] playing pool when he began to feel unsteady on his feet and had difficulty walking straight. He reports that he continued to play pool but noticed he had lost feeling in his left hand when he was trying to shoot. He states that he then was taken to the [facility] [place] who transferred him to this facility. He denies any similar symptoms in the past. At time of i nterview today he denies any residual numbness and states his symptoms have resolved. He does complain of a headache occuring in the mornings every morning since these symptoms. He denies nausea, vomiting, double/blurry vision, weakness, difficulty swallowing, facial droop, or loss of bowel/bladder function. Past Med Surg Social Fam HX - Past Medical History Medical history: hypertension Psychiatric history: anxiety - Social History Smoking Status: Light tobacco smoker Smokeless Tobacco Status: No Alcohol use: none Drug use: none - Family History Brother Adopted: No Race: Family Member Ethnicity: Non- Living Status: Cause of : Myocardial infarction Hx Family Cardiac Disorders: Yes ([place]) Medications and Allergies Amlodipine Besylate 10 mg PO DAILY 05/03/19 [History] Cyclobenzaprine [Flexeril] 10 mg PO BID PRN 05/03/19 [History] Diclofenac Sodium [Voltaren] 50 mg PO TID 05/03/19 [History] Fluticasone Propionate Nasal [Flonase] 100 mcg NS DAILY 05/03/19 [History] OLANZapine [Zyprexa] 5 mg PO DAILY 05/03/19 [History] Omeprazole [PriLOSEC] 20 mg PO DAILY 05/03/19 [History] Ondansetron [Zofran ODT] 8 mg SL BID PRN 05/03/19 [History] Trazodone HCl 100 mg PO HS 05/03/19 [History] diazePAM [Valium] 5 mg PO BID 05/03/19 [History] hydroCHLOROthiazide [Hydrochlorothiazide] 12.5 mg PO DAILY 05/03/19 [History] Allergy/AdvReac Type Severity Reaction Status Date / Time methadone Allergy Difficulty Verified 05/03/19 13:56 Breathing venlafaxine Allergy Difficulty Verified 05/03/19 13:56 Breathing All Systems: The remainder of the systems were reviewed and are negative - Constitutional Constitutional ROS IM: headache(s) (in the mornings), no anorexia, no chills - Nose, Mouth, Throat Nose, mouth and throat: no abnormal hearing, no disequilibrium, no dizziness, no dysphagia - Cardiovascular Cardiovascular ROS IM: no chest pain, no diaphoresis, no dyspnea, no syncope - Respiratory Respiratory IM: no cough, no dyspnea - Gastrointestinal Gastrointestinal: no abdominal pain, no nausea, no vomiting - Genitourinary Genitourinary ROS: no difficulty urinating, no flank pain, no urinary frequency - Musculoskeletal Musculoskeletal ROS IM: back pain (chronic), no numbness - Neurological Neurological ROS: headache(s), no lack of coordination, no syncope, no tremor(s), no vertigo, no weakness - Psychiatric Psychiatric general PM: anxiety (chronic anxiety), no depression Physical Examination - Vital Signs Vital Signs: Initial Vital Signs Temp Pulse Resp BP Pulse Ox 98.1 F 82 18 181/103 99 05/03/19 13:01 05/03/19 13:01 05/03/19 13:01 05/03/19 13:01 05/03/19 13:01 - Exam Exam: GENERAL: Comfortable in no acute distress HEENT: Normal LUNGS: CTA HEART: RRR, S1 S2 Audible, no murmur EXTREMITIES: No Pedal edema. DETAILED NEUROLOGICAL EXAMINATION: MENTAL STATUS: Oriented to person, place, date and situation. Memory: knows the President, Aware of recent events Recent Memory Intact, Attention span is normal Cranial Nerve Examination: CN - II: Visual Acuity, Field of Vision Normal, Fundus examination: No disk edema, Pupils- size shape reaction to light and accommodation: All normal. CN III, IV, : External ocular movements were intact, Pupils were reactive, Nodrooping of the eyelids CN V: Sensation over the face to light touch and pinprick all normal. Corneal reflexes not tested, jaw jerk normal. CN VII: No facial asymmetry, no flattening of nasolabial folds, no difficulty in closing the eyes, no loss of forehead wrinkles, no difficulty in eye-closure, frowning raising eyebrows. CNVIII: No significant hearing loss CN IX, X: Uvula centralized not deviated, Gag reflex: Not tested CN X1: Sternocleidomastoid, trapezius, normal or evidence of any weakness. CN X11: No Dysarthria, no wasting or fibrillation of tongue muscles, no deviation, tongue muscle strength normal. Motor examination: No hypertrophy, tone was normal Upper limbs Proximal- No difficulty in lifting the arms above the head. Distal- No weakness in distal muscles On formal testing 5/5 all over Lower limbs On formal testing 5/5 all over Coordination: [id number] normal. Target pursuit normal finger tapping normal, Rapid alternating moment of wrist normal Sensory system: Superficial sensations- Touch normal. Pain- Pinprick, Temperature all normal, Deep sensation normal, Joint position sense normal. Cortical sensation, Tactile discrimination, localization and extinction all normal. Deep tendon reflexes. Symmetrical bilateral, No evidence of Babinski. No sign of meningeal irritation Gait Examination: Deferred Results - Laboratory Findings CBC and BMP: 05/05/19 03:49 05/05/19 03:49 Abnormal lab findings: Abnormal lab results Eosinophils # 0.7 K/mcL (0.0-0.6) H 05/05/19 03:49 APTT 37.2 Seconds (26.0-36.0) H 05/03/19 13:06 Potassium 3.2 mEq/L (3.5-5.1) L 05/05/19 03:49 Chloride 108 mEq/L (98-107) H 05/03/19 13:06 Glucose 108 mg/dL (70-105) H 05/05/19 03:49 POC Glucose 100 mg/dL (70-99) H 05/03/19 13:04 LDL Cholesterol, Calc 119 mg/dL (0-99) H 05/04/19 17:17 HDL Cholesterol 37 mg/dL (40-59) L 05/04/19 04:16 Consult Discharge Plan - Plan [facility]errals: [facility]Primary Care Provider[facility] - <Derrek Mckeon - Last Filed: 05/05/19 16:58> Date of Encounter: 05/05/19 Assessment and Plan (1) CVA (cerebral vascular accident) Current Visit: Yes Status: Acute I have personally performed a [id number] assessment of the patient and have reviewed the PA/MEMBERSHIP ADVISOR note. My impressions are as follows: I agree with the asses sment and plan as stated above by Dr. Mcelroy. The case was discussed with him. I would also however recommend oral anticoagulation until such time that the PFO is closed. I will reevaluate him at your request. From a neurologic perspective he is close to being back to his normal baseline. Qualifiers: CVA mechanism: unspecified Qualified Code(s): I63.9 - Cerebral infarction, unspecified History of Present Illness HPI: The chart was reviewed, the patient was seen and examined independently this morning. Case was discussed with Dr. Mcelroy. I agree with the documentation as stated above by the neurology resident. Patient at this time has had near complete resolution of all of his presenting symptoms. I did review the MRI scan of the brain which does reveal an acute infarct in a distal branch of the right middle cerebral artery. Echocardiogram and reveals PFO. All Systems: The remainder of the systems were reviewed and are negative Review of Systems: The balance of the systems review is negative. Physical Examination - Vital Signs Vital Signs: Initial Vital Signs Temp Pulse Resp BP Pulse Ox 98.1 F 82 18 181/103 99 05/03/19 13:01 05/03/19 13:01 05/03/19 13:01 05/03/19 13:01 05/03/19 13:01 - Exam Exam: I have personally performed a [id number] assessment of the patient and have reviewed the PA/MEMBERSHIP ADVISOR note. My impressions are as follows: I agree with the documentation of the neurologic examination as above. Results - Laboratory Findings CBC and BMP: 05/05/19 03:49 05/05/19 03:49 Abnormal lab findings: Abnormal lab results Eosinophils # 0.7 K/mcL (0.0-0.6) H 05/05/19 03:49 APTT 37.2 Seconds (26.0-36.0) H 05/03/19 13:06 Potassium 3.2 mEq/L (3.5-5.1) L 05/05/19 03:49 Chloride 108 mEq/L (98-107) H 05/03/19 13:06 Glucose 108 mg/dL (70-105) H 05/05/19 03:49 POC Glucose 100 mg/dL (70-99) H 05/03/19 13:04 LDL Cholesterol, Calc 119 mg/dL (0-99) H 05/04/19 17:17 HDL Cholesterol 37 mg/dL (40-59) L 05/04/19 04:16
--- NOTE | 2019-05-05 13:22 | Internal Med Progress Note ---
Hospitalist Progress Note - Encounter Date of Encounter: 05/05/19 Time of Encounter: 08:35 - Subjective Interval History: No acute events overnight. Patient reports intermittent headaches but states that his weakness and numbness has completely resolved. He denies chest pain, palpitations and lightheadedness. - Exam Vitals: Temp Pulse Resp BP Pulse Ox 36.7 C 82 14 127/85 94 05/05/19 10:37 05/05/19 10:37 05/05/19 10:37 05/05/19 10:37 05/05/19 10:37 Exam: GENERAL: Not in distress. Alert and Oriented x3 HEENT: EOMI, PERRLA MOUTH: Moist oral mucosa. NECK:No JVD, No lymph nodes. CHEST AND LUNGS: Normal breath sounds, no wheezes or crackles HEART: S1 and S2 normal, no murmurs ABDOMEN: Soft, nontender, no organomegaly SKIN: Normal color, no rashes, no lesions EXTREMITIES: No deformity, no edema, no tenderness, no joint swelling or clubbing NEUROLOGICAL: Power of 5/5 in all extremitites. Sensation intact. - Assessment and Plan (1) CVA (cerebral vascular accident) Current Visit: Yes Status: Acute Assessment and Plan: Patient's neurological deficits have resolved. MRI confirmed a moderate acute infarct in the territory of the right MCA. His Echo also showed a PFO He has been seen by cardiology: Plan is to get DAMI to estimate size of PFO and also give patient an event recorder prior to disscharge. PFO closure was discussed with pt Cardio will f/u as outpatient after pt receives event recorder. (2) PFO (patent foramen ovale) Current Visit: Yes Status: Acute Assessment and Plan: PFO seen on TTE Cardio has seen pt and discussed future closure DAMI has been ordered to clarify size of PFO He will be discharged to f/u as outpatient after he receives event recorder. (3) Hypertension Current Visit: Yes Status: Acute Assessment and Plan: BP controlled Continue oral meds (4) Chronic low back pain Current Visit: Yes Status: Acute Assessment and Plan: On home muscle relaxants and PRN pain meds. (5) Anxiety Current Visit: Yes Status: Chronic Assessment and Plan: On home meds (6) Depression Current Visit: Yes Status: Chronic Assessment and Plan: On home meds (7) Obesity (BMI 30.0-34.9) Current Visit: Yes Status: Acute Assessment and Plan: Patient counseled on weight loss modalities available. (8) DVT prophylaxis Current Visit: Yes Status: Acute Assessment and Plan: Subcutaneous heparin - Time Spent with Patient Total time spent is greater than 50% in coordination of care (as documented) at patient's floor/unit and/or counseling patient: Internal Medicine: Result - Labs CBC & Chem 7: 05/05/19 03:49 05/05/19 03:49 Labs: Short CBC 05/05/19 Range/Units 03:49 WBC 8.8 (4.3-11.1) K/mcL Hgb 14.3 (12.9-16.9) g/dL Hct 42.2 (37.5-50.1) % Plt Count 316 (140-400) K/mcL Neutrophils # 3.6 (1.6-8.9) K/mcL BMP 05/04/19 05/05/19 04:16 03:49 Sodium 138 138 Potassium 3.4 L 3.2 L Chloride 106 103 Carbon Dioxide 25 26 BUN 16 17 Creatinine 1.04 0.98 Glucose 113 H 108 H Calcium 9.0 8.9 - ABG Interpretation ABG results: PT/INR, D-dimer PT 11.5 Seconds (9.4-12.1) 05/03/19 13:06 - Impressions Impressions Echocardiogram 05/04/19 15:59 Impressions: LVEF 60%. Mild left ventricular diastolic dysfunction. Normal right ventricular structure and function. No significant valvular dysfunction. No pulmonary hypertension. Saline contrast bubbles are observed in the left heart at approximately 3 cardiac cycles suggesting the presence of a PFO. Left Ventricular Wall Motion: Rest Echo Findings All wall segments showed normal motion. Findings: Study Quality * Technically adequate exam. ECG Findings * Normal sinus rhythm. Left Ventricle * LVEF 60%. * Normal LV chamber size, wall thickness and function. * Mild left ventricular diastolic dysfunction. Right Ventricle * Normal right ventricular structure and function. Left Atrium * Normal left atrial size. Right Atrium * Normal right atrial size. Aortic Valve * No aortic regurgitation. * Trileaflet aortic valve. * No aortic stenosis. Mitral Valve * No mitral regurgitation. * Normal mitral valve structure. * No mitral stenosis. Tricuspid Valve * Normal tricuspid valve structure. * Estimated RA pressure is 3 mmHg. Pulmonic Valve * Pulmonic valve is not well visualized. * No pulmonic stenosis. * No pulmonic regurgitation. Pulmonary Artery * Pulmonary artery not well visualized. Aorta * Normally sized aortic root. Pericardium * There is no pericardial effusion present. Interatrial Septum * Saline contrast bubbles are observed in the left heart at approximately 3 cardiac cycles suggesting the presence of a PFO. IVC * The IVC is not dilated. Consult Discharge Plan - Plan Referrals: [facility],PCP [Primary Care Provider] - (1) CVA (cerebral vascular accident) Qualifiers: CVA mechanism: unspecified Qualified Code(s): I63.9 - Cerebral infarction, unspecified (3) Hypertension Qualifiers: Hypertension type: essential hypertension Qualified Code(s): I10 - Essential (primary) hypertension (4) Chronic low back pain Qualifiers: Back pain laterality: bilateral Sciatica presence: without sciatica Qualified Code(s): M54.5 - Low back pain; G89.29 - Other chronic pain (6) Depression Qualifiers: Depression Type: unspecified Qualified Code(s): F32.9 - Major depressive disorder, single episode, unspecified
[2019-05-05] MEDS: Apixaban 5 MG TABLET PO SCH (19:51)
[2019-05-05] MEDS: traZODone 50 MG TABLET PO SCH (19:52)
[2019-05-05] MEDS ORDERED: *HR* HYDROmorphone 4 MG TABLET PO ONE (22:26)
[2019-05-06] MEDS ORDERED: *HR* HYDROmorphone 2 MG TABLET PO PRN (03:48)
[2019-05-06] MEDS: diazePAM 5 MG TABLET PO SCH (08:08)
[2019-05-06] MEDS: amLODIPine 5 MG TABLET PO SCH (08:08)
[2019-05-06] MEDS: hydroCHLOROthiazide 25 MG TABLET PO SCH (08:08)
[2019-05-06] MEDS: OLANZapine 5 MG TAB.RAPDIS PO SCH (08:08)
[2019-05-06] MEDS: Apixaban 5 MG TABLET PO SCH (08:08)
[2019-05-06] MEDS: Fluticasone Propionate Nasal 50 MCG/SPRAY BOTTLE NS SCH (08:08)
[2019-05-06] MEDS ORDERED: *HR* OxyCODONE/APAP 5/325 TABLET PO PRN (08:17)
[2019-05-06] MEDS ORDERED: *HR* OxyCODONE/APAP 10/325 TABLET PO PRN (08:17)
[2019-05-06] MEDS ORDERED: Acetaminophen 325 MG TABLET PO PRN (08:18)
[2019-05-06] MEDS ORDERED: Lidocaine Viscous Oral Soln 15 ML SOLUTION MM PRN (09:56)
[2019-05-06] MEDS ORDERED: 0.9 % Sodium Chloride 500 ML IVC ONE (09:56)
[2019-05-06 10:04] LABS: Basophils # 0.1 K/mcL (0.0-0.2); Basophils % 1.3 %; Eosinophils # 0.4 K/mcL (0.0-0.6); Eosinophils % 5.1 %; Hemoglobin 14.8 g/dL (12.9-16.9); Immature Granulocytes % 0.4 % (0-4); Lymphocytes # 2.9 K/mcL (0.6-4.6); Lymphocytes % 34.2 %; Mean Corpuscular HGB Conc 33.6 g/dL (31.6-35.5); Mean Corpuscular Volume 86.1 fL (83.0-100.0); Mean Platelet Volume 10.4 fL (9.4-12.4); Monocytes # 0.7 K/mcL (0.0-1.3); Monocytes % 8.5 %; Neutrophils # 4.3 K/mcL (1.6-8.9); Platelet Count 339 K/mcL (140-400); Red Blood Count 5.11 M/mcL (4.19-5.50); Red Cell Distribution Width 13.3 % (11.5-14.5); Segmented Neutrophils % 50.5 %; White Blood Count 8.6 K/mcL (4.3-11.1)
[2019-05-06] MEDS: *HR* Midazolam HCl 5 MG/5 ML VIAL IVP PRN ×5 (10:15→10:35)
[2019-05-06] MEDS: *HR* FentaNYL (PF) 100 MCG/2 ML VIAL IVP PRN ×4 (10:15→10:40)
[2019-05-06 10:21] LABS: BUN/Creatinine Ratio 19 (6-26); Blood Urea Nitrogen 18 mg/dL (8-23); Calcium 9.4 mg/dL (8.6-10.3); Carbon Dioxide 28 mEq/L (23-29); Chloride 105 mEq/L (98-107); Glucose 102 mg/dL (70-105); Osmolality,Calculated 288 (280-300); Potassium 3.6 mEq/L (3.5-5.1); Sodium 138 mEq/L (136-145); eGFR For African Americans > 60 (> 60); eGFR For Non-African Americans > 60 (> 60)
[2019-05-06 11:44] VITALS: BP 149/72
--- NOTE | 2019-05-06 13:03 | Event Note ---
Date of Encounter: 05/06/19 Time of Encounter: 13:00 - Cardiology Event Note Prelim DAMI findings reviewed with Dr. Spear--final report pending. Small-moderate sized PFO. No AISHWARYA clot. Recommend event monitor (ordered) upon discharge and f/u with Dr. Amezcua as outpatient for PFO closure evaluation. No further inpt recommendations. Cardiology will sign-off.
--- NOTE | 2019-05-06 13:17 | Discharge Summary ---
Date of Encounter: 05/06/19 Time of Encounter: 11:00 - Discharge Diagnosis (1) CVA (cerebral vascular accident) Priority: Primary Status: Acute Assessment and Plan: 63-year-old male with past medical history of hypertension, seizure disorder (last seizure many years ago) and chronic low back pain who presented with sudden onset left-sided weakness which started today. Patient states that he was in a friend's house playing pool when he suddenly noticed that he was swaying towards his left side when walking and could not control the cue stick because he noticed some weakness and had lost sensation in his left upper and lo wer extremities. This occurred about 3 hours prior to presenting at the hospital. His friends got alarmed and called 911 He was assessed with rule out acute stroke. MRI confirmed a moderate acute i nfarct in the territory of the right MCA.His Echo also showed a PFO. He was seen by cardiology. DAMI was performed to estimate size of PFO and also give patient an event recorder prior to discharge. DAMI was done showing small PFO. PFO closure was discussed with pt. Cardio will f/u as outpatient and an event monitor was ordered on discharge. He was seen by neurology as well who recommend anticoagulation with eliquis until PFO closure. Neuro deficits had resolved by the time of discharge. 35 minutes was spent discharging this patient Qualifiers: CVA mechanism: unspecified Qualified Code(s): I63.9 - Cerebral infarction, unspecified (2) Hypertension Priority: Primary Status: Acute Qualifiers: Hypertension type: essential hypertension Qualified Code(s): I10 - Essential (primary) hypertension (3) Chronic low back pain Priority: Primary Status: Acute Qualifiers: Back pain laterality: bilateral Sciatica presence: without sciatica Qualified Code(s): M54.5 - Low back pain; G89.29 - Other chronic pain (4) DVT prophylaxis Priority: Primary Status: Acute (5) Anxiety Priority: Primary Status: Chronic (6) Depression Priority: Primary Status: Chronic Qualifiers: Depression Type: unspecified Qualified Code(s): F32.9 - Major depressive disorder, single episode, unspecified (7) Obesity (BMI 30.0-34.9) Priority: Primary Status: Acute (8) PFO (patent foramen ovale) Priority: Primary Status: Acute Hospital course: Mr. Montero is a 63 year old male - Time Spent with Patient Total time spent providing and/or coordinating discharge services: - Discharge Medications Prescriptions: New Apixaban [Eliquis] 5 mg PO BID #60 tablet Atorvastatin [Lipitor] 80 mg PO HS #60 tablet Continued Ondansetron [Zofran ODT] 8 mg SL BID PRN PRN Reason: Nausea Omeprazole [PriLOSEC] 20 mg PO DAILY OLANZapine [Zyprexa] 5 mg PO DAILY hydroCHLOROthiazide [Hydrochlorothiazide] 12.5 mg PO DAILY Fluticasone Propionate Nasal [Flonase] 100 mcg NS DAILY Diclofenac Sodium [Voltaren] 50 mg PO TID diazePAM [Valium] 5 mg PO BID Cyclobenzaprine [Flexeril] 10 mg PO BID PRN PRN Reason: Muscle Spasm Amlodipine Besylate 10 mg PO DAILY Trazodone HCl 100 mg PO HS Home Medications: Amlodipine Besylate 10 mg PO DAILY 05/03/19 [History] Cyclobenzaprine [Flexeril] 10 mg PO BID PRN 05/03/19 [History] Diclofenac Sodium [Voltaren] 50 mg PO TID 05/03/19 [History] Fluticasone Propionate Nasal [Flonase] 100 mcg NS DAILY 05/03/19 [History] OLANZapine [Zyprexa] 5 mg PO DAILY 05/03/19 [History] Omeprazole [PriLOSEC] 20 mg PO DAILY 05/03/19 [History] Ondansetron [Zofran ODT] 8 mg SL BID PRN 05/03/19 [History] Trazodone HCl 100 mg PO HS 05/03/19 [History] diazePAM [Valium] 5 mg PO BID 05/03/19 [History] hydroCHLOROthiazide [Hydrochlorothiazide] 12.5 mg PO DAILY 05/03/19 [History] Apixaban [Eliquis] 5 mg PO BID #60 tablet 05/06/19 [Rx] Atorvastatin [Lipitor] 80 mg PO HS #60 tablet 05/06/19 [Rx] Allergies/Adverse Reactions: Allergy/AdvReac Type Severity Reaction Status Date / Time methadone Allergy Difficulty Verified 05/03/19 13:56 Breathing venlafaxine Allergy Difficulty Verified 05/03/19 13:56 Breathing Date of admission: 05/05/19 13:10 [facility] care physician: [facility] Consults: 05/04/19 14:35 Consult to Physical Therapy [CONS] Routine Comment: Evaluate, develop and implement POC Reason for Consult: eval per stroke protocol Does patient have active BEDREST order?: No Is patient medically & hemodynamically stable?: Yes 05/04/19 16:45 Consult to Cardiology [CONS] Routine Comment: Consulting Provider: [facility] Reason for Consult: CVA with PFO on ECHO Call Completed: Yes Consult to Neurology [CONS] Routine Consulting Provider: [facility] Reason for Consult: CVA with PFO on ECHO Call Completed: Yes - Constitutional Vitals: Temp Pulse Resp BP Pulse Ox 97.6 F 68 16 149/72 98 05/06/19 11:43 05/06/19 11:43 05/06/19 11:43 05/06/19 11:43 05/06/19 11:43 Exam: GENERAL: Not in distress. Alert and Oriented x3 HEENT: EOMI, PERRLA MOUTH: Moist oral mucosa. NECK:No JVD, No lymph nodes. CHEST AND LUNGS: Normal breath sounds, no wheezes or crackles HEART: S1 and S2 normal, no murmurs ABDOMEN: Soft, nontender, no organomegaly SKIN: Normal color, no rashes, no lesions EXTREMITIES: No deformity, no edema, no tenderness, no joint swelling or clubbing NEUROLOGICAL: Power of 5/5 in all extremitites. Sensation intact. - Patient Status Disposition: Home, Self-Care Condition: Good - Discharge Instructions Instructions: Atorvastatin (By mouth), Apixaban (By mouth), Holter Monitoring (DC) Follow Up With: [facility] [Primary Care Provider[facility] - 05/11/19 11:30 am (Please follow up as schedule...)
[2019-05-06] MEDS ORDERED: FLU Vac QV 19-20 (6Month+)/PF 0.5 ML SYRINGE IM ONE (14:02)
== END 2019-05-06 15:09 | disposition home or self-care (01) | DRG 65 ==
LOC: EMEROOARM 12:54 → 2ANU 12:54 → SUATTDRO 14:25
PROVIDERS: ADMIT Student in an Organized Health Care Education/Training Program; ATTEND Internal Medicine

== ENCOUNTER 2019-11-10 02:05 | Observation (INO) ==
[2019-11-10 02:37] LABS: Basophils # 0.1 K/mcL (0.0-0.2); Eosinophils # 0.6 K/mcL (0.0-0.6); Eosinophils % 5.7 %; Hematocrit 44.5 % (37.5-50.1); Immature Granulocytes % 0.3 % (0-4); Lymphocytes # 2.8 K/mcL (0.6-4.6); Lymphocytes % 27.6 %; Mean Corpuscular HGB Conc 33.7 g/dL (31.6-35.5); Mean Corpuscular Hemoglobin 29.4 pg (28.0-33.3); Mean Corpuscular Volume 87.1 fL (83.0-100.0); Mean Platelet Volume 10.3 fL (9.4-12.4); Monocytes # 0.7 K/mcL (0.0-1.3); Monocytes % 6.7 %; Neutrophils # 5.9 K/mcL (1.6-8.9); Platelet Count 321 K/mcL (140-400); Red Blood Count 5.11 M/mcL (4.19-5.50); Red Cell Distribution Width 13.4 % (11.5-14.5); Segmented Neutrophils % 58.7 %
[2019-11-10 02:43] LABS: INR 0.9; Prothrombin Time 10.7 Seconds (9.4-12.1)
[2019-11-10 02:45] LABS: Activated Partial Thrombo Time 34.8 Seconds (26.0-36.0)
[2019-11-10 02:58] LABS: BUN/Creatinine Ratio 13 (6-26); Blood Urea Nitrogen 11 mg/dL (8-23); Calcium 9.2 mg/dL (8.6-10.3); Carbon Dioxide 27 mEq/L (23-29); Chloride 103 mEq/L (98-107); Glucose 125 mg/dL (70-105); Osmolality,Calculated 283 (280-300); Sodium 136 mEq/L (136-145); eGFR For African Americans > 60 (> 60); eGFR For Non-African Americans > 60 (> 60)
[2019-11-10 02:59] LABS: Troponin I < 0.03 ng/mL (< 0.04)
[2019-11-10] MEDS ORDERED: Aspirin 81 MG TAB.CHEW PO ONE (03:05)
[2019-11-10] MEDS: Nitroglycerin 0.4 MG TAB.SUBL SL PRN ×2 (03:29→03:36)
[2019-11-10] MEDS ORDERED: Morphine Sulfate 2 MG/ML SYRINGE IVP ONE (03:49)
[2019-11-10] MEDS ORDERED: Ondansetron 4 MG/2 ML VIAL IVP ONE (04:18)
[2019-11-10] MEDS ORDERED: Isovue-370 500 ML BOTTLE IVP ONE (04:30)
[2019-11-10] MEDS ORDERED: 0.9 % Sodium Chloride 1,000 ML IV ONE (04:48)
[2019-11-10] MEDS ORDERED: Potassium Chloride Elixir 20 MEQ/15 ML UDC PO ONE (04:49)
[2019-11-10] MEDS ORDERED: *HR* FentaNYL (PF) 100 MCG/2 ML VIAL IVP ONE (04:55)
[2019-11-10] MEDS ORDERED: GI Cocktail 40 ML EACH PO ONE (05:20)
[2019-11-10 05:33] LABS: Lipase 18 Units/L (11-82)
[2019-11-10 05:34] LABS: Troponin I < 0.03 ng/mL (< 0.04)
[2019-11-10] MEDS ORDERED: *HR* Heparin 5,000 UNIT/ML VIAL IVP PRN ×2 (06:17)
[2019-11-10] MEDS ORDERED: *HR* Heparin 5,000 UNIT/ML VIAL IVP ONE (06:17)
[2019-11-10] MEDS ORDERED: Heparin 25,000 UNIT/250 ML D5W 25,000 UNIT/250 ML IV.SOLN IVC SCH (06:30)
[2019-11-10] MEDS ORDERED: Naloxone 0.4 MG/ML INJ IVP PRN (07:02)
[2019-11-10] MEDS ORDERED: Ondansetron 4 MG/2 ML VIAL IVP PRN (07:02)
[2019-11-10] MEDS ORDERED: 0.9 % Sodium Chloride 1,000 ML IVC SCH (07:15)
[2019-11-10 07:58] LABS: Hematocrit 46.2 % (37.5-50.1); Hemoglobin 15.9 g/dL (12.9-16.9); Mean Corpuscular HGB Conc 34.4 g/dL (31.6-35.5); Mean Corpuscular Hemoglobin 30.2 pg (28.0-33.3); Mean Corpuscular Volume 87.7 fL (83.0-100.0); Mean Platelet Volume 10.2 fL (9.4-12.4); Platelet Count 335 K/mcL (140-400); Red Blood Count 5.27 M/mcL (4.19-5.50); Red Cell Distribution Width 13.6 % (11.5-14.5); White Blood Count 13.3 K/mcL (4.3-11.1)
[2019-11-10 08:03] LABS: Prothrombin Time 10.8 Seconds (9.4-12.1)
[2019-11-10 08:06] LABS: Heparin anti-factor XA UFH < 0.04 IU/mL (0.30-0.70)
[2019-11-10] MEDS ORDERED: hydroCHLOROthiazide 25 MG TABLET PO SCH (09:00)
[2019-11-10] MEDS ORDERED: OLANZapine 5 MG TAB.RAPDIS PO SCH (09:00)
[2019-11-10] MEDS ORDERED: amLODIPine 5 MG TABLET PO SCH (09:00)
[2019-11-10] MEDS ORDERED: diazePAM 5 MG TABLET PO SCH (09:00)
[2019-11-10] MEDS ORDERED: Apixaban 5 MG TABLET PO SCH (09:00)
[2019-11-10] MEDS ORDERED: Regadenoson 0.4 MG/5 ML SYRINGE IVP ONE ×2 (10:19→10:22)
[2019-11-10 16:02] VITALS: BP 129/86
[2019-11-10] MEDS ORDERED: traZODone 50 MG TABLET PO SCH (21:00)
[2019-11-11] MEDS ORDERED: Aspirin Enteric Coated 81 MG Tablet PO SCH (09:00)
== END 2019-11-10 17:21 | disposition home or self-care (01) ==
LOC: EMEROOARM 02:05 → 3BNU 02:05 → SUATTDRO 06:03 → 3BNU 06:53
PROVIDERS: ADMIT Student in an Organized Health Care Education/Training Program; ATTEND Family Medicine